=== PATIENT | male | born 1940 | race Caucasian/White ===

== ENCOUNTER 2016-08-27 22:28 | Emergency (ER) | payer OTHER ==
[~2016-08-27] VITALS: Ht 188 cm; Wt 108.0 kg
[2016-08-27 22:35] VITALS: Ht 188 cm; Wt 108.0 kg
[2016-08-27] MEDS ORDERED: CEFTRIAXONE 1 GM/50 ML (PMX) 50 ML IVPB ONE (23:00)
[2016-08-27] MEDS ORDERED: DILTIAZEM 25 MG INJ IV ONE (23:00)
[2016-08-27] MEDS ORDERED: SOD CHLORIDE 0.9% 500 ML IV ONE (23:00)
[2016-08-27] MEDS ORDERED: ASPIRIN 81 MG TAB PO ONE (23:00)
[2016-08-27] MEDS: IBUPROFEN 600 MG TAB PO ONE ×2 (23:11→23:17)
[2016-08-27 23:13] LABS: ADD SCAN DIFF NO
[2016-08-27] MEDS ORDERED: WARF5TAB72 PO (23:18)
[2016-08-27] MEDS ORDERED: LOSA100T47 PO (23:19)
[2016-08-27] MEDS ORDERED: METO-448 PO (23:19)
--- NOTE | 2016-08-27 23:19 | ERA ---
ER Documentation Chief Complaint Date/Time DATE: 08/27/16 TIME: 23:16 Chief Complaint WEAKNESS HPI 75-year-old man brought in by EMS from home after fall, he states he struck his occipital scalp when he fell and has been generally feeling weak for the last 2 days with increased cough. He also complains of palpitations. He had a diagnosis of pneumonia last month and was treated with IV antibiotics. He denies shortness of breath, no chest pain, no vomiting or diarrhea, no headache or blurry vision. Patient is a poor historian and HPI supplemented by speaking to EMS who transported him here without further complications. ROS All systems reviewed and are negative except as per history of present illness. Medications Home Meds Reported Medications Multivitamins* (Theragran*) 1 Tab Tab, 1 TAB PO DAILY, TAB 08/27/16 Cholecalciferol* (Vitamin D3*) 1,000 Unit Tablet, 2000 UNIT PO DAILY, TAB 08/27/16 Metformin* (Glucophage*) 850 Mg Tablet, 850 MG PO WITH MEALS, #90 TAB 08/27/16 Glipizide* (Glucotrol*) 10 Mg Tablet, 20 MG PO BID WITH MEALS, TAB 08/27/16 Atorvastatin Calcium (Atorvastatin Calcium) 10 Mg Tablet, 10 MG PO QHS, #30 TAB 08/27/16 Furosemide* (Furosemide*) 40 Mg Tablet, 40 MG PO DAILY, TAB 08/27/16 Losartan Potassium* (Cozaar*) 100 Mg Tablet, 100 MG PO DAILY, #30 TAB 08/27/16 Metoprolol Tartrate* (Lopressor*) 25 Mg Tab, 75 MG PO BID, #180 TAB 08/27/16 Warfarin Sodium* (Coumadin*) 5 Mg Tablet, 5 MG PO DAILY, TAB PATIENT TAKE 5MG DAILY EXCEPT ON THURSDAY PATIENT TAKES 1 AND 1/2 TABS. 08/27/16 Allergies Allergies: Coded Allergies: lisinopril (Unverified Allergy, Unknown, 08/27/16) PMhx/Soc Hypertension, dementia, possibly congestive heart failure, atrial fibrillation History of Surgery: No Anesthesia Reaction: No Hx Neurological Disorder: No Hx Respiratory Disorders: No Hx Cardiac Disorders: Yes (AFIB) Hx Psychiatric Problems: No Hx Miscellaneous Medical Probl: No Hx Alcohol Use: No Hx Substance Use: No Hx Tobacco Use: No Smoking Status: Unknown if ever smoked FmHx Family History: No diabetes Physical Exam Vitals Vital Signs Date Time Temp Pulse Resp B/P Pulse Ox O2 Delivery O2 Flow Rate FiO2 08/27/16 23:30 98.9 106 28 141/87 99 Room Air 08/27/16 23:04 Nasal Cannula 2 08/27/16 22:35 102.5 142 28 127/111 94 Physical Exam GENERAL: Well-developed, appears dehydrated, febrile HEENT: Dry mucous, pink conjunctiva, no cervical spine tenderness or step-off deformities, no goiter, no jaundice or icterus, extraocular movements intact without pain. No submandibular induration, and no pharyngeal erythema NEURO: Alert and oriented 2, able to answer simple questions and follow simple commands, cranial nerves II through XII intact bilaterally, pupils equal round reactive to light, no focal deficits or facial asymmetry CARDIAC: Tachycardic and irregular, no murmurs rubs or gallops LUNGS: Poor breath sounds bilaterally, bibasilar crackles, no wheezing or stridor ABDOMEN: Soft nontender, no guarding, no rigidity, no rebound, no psoas sign no obturator sign. Normoactive bowel sounds SKIN: Warm and dry to touch, no abrasions, contusions, or hematomas, no lacerations, no ecchymosis, no target lesions, and without ulcers EXTREMITIES: No clubbing cyanosis, 2+ pitting edema in the lower extremities bilaterally, calves are bilaterally symmetrical, no Homans sign, no popliteal cord sign. Distal pulses equal and bilateral PSYCH: Normal affect without agitation or irritability Result Diagram: 08/27/16224908/27/162249 Results 24 hrs Laboratory Tests Test 08/27/16 22:30 08/27/16 22:50 Urine Color LT. YELLOW Urine Clarity CLEAR Urine pH 5.0 Urine Specific [place] 1.020 Urine Ketones NEGATIVE Urine Nitrite NEGATIVE Urine Bilirubin NEGATIVE Urine Urobilinogen 0.2 E.U./dL Urine Leukocyte Esterase NEGATIVE Urine Microscopic RBC 2-5/HPF Urine Microscopic WBC 0-2/HPF Urine Amorphous Urates MODERATE Urine Mucus FEW Urine Hemoglobin 1+ Urine Glucose NEGATIVE% Urine Total Protein 2+ Lactic Acid Level 5.7mmol/L White Blood Count 12.110^3/ul Red Blood Count 3.4810^6/ul Hemoglobin 10.3g/dl Hematocrit 33.0% Mean Corpuscular Volume 94.8fl Mean Corpuscular Hemoglobin 29.6pg Mean Corpuscular Hemoglobin Concent 31.2g/dl Red Cell Distribution Width 13.8% Platelet Count 63843^3/UL Mean Platelet Volume 9.9fl Neutrophils % 77.4% Lymphocytes % 13.8% Monocytes % 7.9% Eosinophils % 0.2% Basophils % 0.2% Nucleated Red Blood Cells % 0.0/100WBC Neutrophils # 9.410^3/ul Lymphocytes # 1.710^3/ul Monocytes # 1.010^3/ul Eosinophils # 0.010^3/ul Basophils # 0.010^3/ul Nucleated Red Blood Cells # 0.010^3/ul Prothrombin Time 24.3Sec Prothrombin Time Ratio 1.9 INR International Normalized Ratio 2.16 Activated Partial Thromboplast Time 53.8Sec Sodium Level 139mmol/L Potassium Level 5.1mmol/L Chloride Level 105mmol/L Carbon Dioxide Level 21mmol/L Anion Gap 18 Blood Urea Nitrogen 24mg/dl Creatinine 1.08mg/dl Glucose Level 162mg/dl Calcium Level 9.6mg/dl Total Bilirubin 1.5mg/dl Direct Bilirubin 0.00mg/dl Indirect Bilirubin 1.5mg/dl Aspartate Amino Transf (AST/SGOT) 27IU/L Alanine Aminotransferase (ALT/SGPT) 37IU/L Alkaline Phosphatase 99IU/L Troponin I < 0.012ng/ml B-Type Natriuretic Peptide 8910PG/ML Total Protein 7.9g/dl Albumin 4.0g/dl Globulin 3.90g/dl Albumin/Globulin Ratio 1.02 Lipase 113U/L Current Medications Medications (Trade) Dose Ordered Sig/Anaya Route PRN Reason Start Time Stop Time Status Last Admin Dose Admin Sodium Chloride (NS) 500 ml @ 500 mls/hr Q1H ONCE IV 08/27/16 23:00 08/27/16 23:59 DC 08/27/16 23:18 Diltiazem HCl (Cardizem Iv) 20 mg ONCE ONCE IV 08/27/16 23:00 08/27/16 23:01 DC 08/27/16 23:11 Aspirin (Aspirin) 324 mg ONCE ONCE PO 08/27/16 23:00 08/27/16 23:01 DC 08/27/16 23:10 Ibuprofen 600 mg 600 mg ONCE ONCE PO 08/27/16 23:00 08/27/16 23:01 DC Ceftriaxone Sodium 50 ml @ 100 mls/hr ONCE ONCE IVPB 08/27/16 23:00 08/27/16 23:29 DC 08/27/16 23:10 Azithromycin 250 ml @ 250 mls/hr ONCE ONCE IVPB 08/28/16 00:00 08/28/16 00:59 08/28/16 00:36 Sodium Chloride 1,000 ml @ 1,000 mls/hr Q1H ONCE IV 08/28/16 00:00 08/28/16 00:59 08/28/16 00:36 Vancomycin HCl (Vancocin) 250 ml @ 125 mls/hr ONCE IVPB 08/28/16 00:00 08/28/16 01:59 Diltiazem HCl (Cardizem Iv) 20 mg ONCE ONCE IV 08/28/16 00:00 08/28/16 00:01 DC 08/28/16 00:04 Procedures/MDM IV line was established patient was placed on radiographer cardiac catheterization rhythm strip revealed a irregular tachycardia at about 150 bpm consistent with atrial fibrillation. Patient was febrile. Blood and urine cultures have been ordered results are pending I will follow-up. Patient was given 500 cc normal saline intravenously and will not be given the full 30 mL/kg dose of IV fluids as I have high concern for decompensated heart failure either secondary to or exacerbated by atrial fibrillation with rapid ventricular rate. EKG performed, read by me revealed an atrial fibrillation with rapid ventricular rate at 150 bpm, normal axis, narrow QRS complex, no concerning ST elevations or depressions noted. I administered diltiazem 20 mg IV 1 with a reduction in his pulse although he did remain tachycardic and with complaints of palpitations so he was given a second dose of diltiazem 20 mg IV for a total of 40 mg. His pulse and blood pressure did improve. One view chest x-ray performed, read by me reveals a left upper lobe infiltrate , no pneumothorax, no end of the diaphragm, atelectatic changes bilaterally. CBC was unremarkable, electrolytes revealed a BUN/creatinine of 24/1, liver function tests were normal, troponin was negative, lactic acid elevated at 5.7, BNP elevated at about 9000 Patient was given a dose of 1 L normal saline intravenous for a total of 1.5 L, although no further IV fluids will be administered in the ED. Critical Care: Time: 38 minutes, this was time separate from other procedures. Treatments/Evaluations: Close monitoring and treatment of unstable vital signs, cardiorespiratory, and neurologic status, while maintaining tight balance of fluid, respiratory, and cardiac interventions. Patient's infectious symptoms have not stabilized and the patient is at risk of rapid decompensation. The patient will be admitted for careful hydration, antibiotic therapy, and infectious source control. Severe Sepsis Assessment: Infectious Source: Pneumonia Nothing on physical examination or laboratory findings to suggest endorgan damage at this time. Severe Sepsis Managment: Blood Cultures X 2 before broad spectrum antibiotics initiated within 3 hours of recognition. 30 ml/kg NS bolus Completed Initial Lactate: 5.7 Repeat Lactate elevated Septic Shock Assessment: Hypotension (SBP < 90 or 40 mmHg drop, MAP < 65): No Lactic acid > 4.0 yes Perfusion Reassessment for Septic Shock: Temp afebrile, Pulse 100, RR 20, BP 130/80 Heart Exam: Tachycardic Lung Exam: Bibasilar carotid Capillary Refill: Less than 2 second Peripheral Pulses: Radially present Skin: Warm and dry Hypotensive Treatment (not required for isolated lactic acid elevation): Comfort Care: No Central LIne: Not indicated Vasopressor started: Not required Accepting Care Team: Current data and ongoing care discussed. Time: 00:30 on the morning of August 28. Patient to be transferred to [facility]. Primary Provider: [facility]. [facility] authorization #[id number] Consulting: Infectious disease and cardiology Outstanding Data: none Departure Diagnosis: Primary Impression: Atrial fibrillation with RVR Additional Impressions: Sepsis Qualified Code: A41.9 - Sepsis, due to unspecified organism Pneumonia Qualified Code: J18.1 - Pneumonia of left upper lobe due to infectious organism CHF (congestive heart failure) Qualified Code: I50.21 - Acute systolic congestive heart failure Dehydration Condition: RONAK Benavidez MD August 27, 2016 23:19
[2016-08-27 23:20] LABS: BASOPHILS % 0.2 % (0.0-2.0); EOSINOPHILS % 0.2 % (0.0-7.0); HEMOGLOBIN 10.3 g/dl (14.0-18.0); LYMPHOCYTES # 1.7 10^3/ul (0.8-2.9); LYMPHOCYTES % 13.8 % (15.0-51.0); MEAN CORPUSCULAR HEMOGLOBIN 29.6 pg (29.0-33.0); MEAN CORPUSCULAR HGB CONC 31.2 g/dl (32.0-37.0); MEAN CORPUSCULAR VOLUME 94.8 fl (82.0-101.0); MEAN PLATELET VOLUME 9.9 fl (7.4-10.4); MONOCYTES % 7.9 % (0.0-11.0); NEUTROPHIL # 9.4 10^3/ul (1.6-7.5); NEUTROPHILS % 77.4 % (39.0-77.0); PLATELET COUNT 276 10^3/UL (140-415); RED BLOOD COUNT 3.48 10^6/ul (4.70-6.10); RED CELL DISTRIBUTION WIDTH 13.8 % (11.5-14.5); WHITE BLOOD COUNT 12.1 10^3/ul (4.8-10.8)
[2016-08-27] MEDS ORDERED: FURO40TA4 PO (23:20)
[2016-08-27] MEDS ORDERED: ATOR10TA65 PO (23:20)
[2016-08-27] MEDS ORDERED: GLIP10TA95 PO (23:21)
[2016-08-27] MEDS ORDERED: METF-480 PO (23:22)
[2016-08-27] MEDS ORDERED: CHOL100062 PO (23:22)
[2016-08-27] MEDS ORDERED: MULTI PO (23:23)
[2016-08-27 23:27] LABS: ADD UMIC YES; URINE BILIRUBIN (Dip) NEGATIVE (NEGATIVE); URINE BLOOD (Dip) 1+ (NEGATIVE); URINE COLOR LT. YELLOW (YELLOW); URINE GLUCOSE (Dip) NEGATIVE (NEGATIVE); URINE KETONES (Dip) NEGATIVE (NEGATIVE); URINE LEUKOCYTE ESTERASE (Dip) NEGATIVE (NEGATIVE); URINE NITRITE (Dip) NEGATIVE (NEGATIVE); URINE TOTAL PROTEIN (Dip) 2+ (NEGATIVE); URINE UROBILINOGEN (Dip) 0.2 E.U./dL (0.1-1.0)
[2016-08-27 23:37] LABS: INR 2.16; PROTIME 24.3 Sec (12.2-14.2); PT RATIO 1.9
[2016-08-27 23:38] LABS: PARTIAL THROMBOPLASTIN TIME 53.8 Sec (25.0-35.0)
[2016-08-27 23:40] LABS: ALANINE AMINOTRANSFERASE 37 IU/L (13-69); ALBUMIN/GLOBULIN RATIO 1.02; ALKALINE PHOSPHATASE 99 IU/L (42-121); ANION GAP 18 (8-16); ASPARTATE AMINO TRANSFERASE 27 IU/L (15-46); BILIRUBIN,INDIRECT 1.5 mg/dl (0-1.1); BILIRUBIN,TOTAL 1.5 mg/dl (0.2-1.3); BLOOD UREA NITROGEN 24 mg/dl (7-20); CALCIUM 9.6 mg/dl (8.4-10.2); CARBON DIOXIDE 21 mmol/L (21-31); CHLORIDE 105 mmol/L (97-110); CREATININE 1.08 mg/dl (0.61-1.24); GLUCOSE 162 mg/dl (70-220); POTASSIUM 5.1 mmol/L (3.5-5.1); SODIUM 139 mmol/L (135-144); TOTAL PROTEIN 7.9 g/dl (6.1-8.1)
[2016-08-27 23:51] LABS: B-TYPE NATRIURETIC PEPTIDE 8910 PG/ML (0-450)
[2016-08-27 23:56] LABS: TROPONIN-I < 0.012 ng/ml (0.00-0.12)
[2016-08-27 23:58] LABS: MUCUS,URINE FEW
[2016-08-28] MEDS ORDERED: SOD CHLORIDE 0.9% 1,000 ML IV ONE
[2016-08-28] MEDS ORDERED: DILTIAZEM 25 MG INJ IV ONE
[2016-08-28] MEDS ORDERED: VANCOMYCIN 1 GM (PMX) 250 ML IVPB SCH
[2016-08-28] MEDS ORDERED: AZITHROMYCIN 500MG/NS (PMX) 250 ML IVPB ONE
--- NOTE | 2016-08-28 00:57 | RADRPT ---
PROCEDURE: Noncontrast CT Head. CLINICAL INDICATION: Pain. TECHNIQUE: Noncontrast CT of the head was obtained. The administered radiation dose was CTDI vol = 44 mGy, DLP = 900 mGy-cm. COMPARISON: No pertinent prior examinations were submitted for comparison. FINDINGS: The ventricles and cortical sulci are mildly enlarged. There is mild decreased attenuation within t he periventricular and subcortical white matter compatible with chronic microvascular changes. There is no acute intracranial hemorrhage or extra-axial fluid collection. There is no mass effect . No midline shift is identified. There is no loss of choi-white differentiation to suggest acute in farction. The orbits are within normal limits. The paranasal sinuses are well aerated. No destructive osseous lesion is identified. IMPRESSION: No acute findings. Mild diffuse parenchymal volume loss and chronic microvascular changes. RPTAT: HIKT .Dwayne Hernández MD, MD Date Time Electronically viewed and signed by .Dwayne Hernández MD, on 08/28/2016 00:56 .T/
[2016-08-28 02:02] VITALS: BP 115/69; PULSE 100; RESP 28; TEMP 98.9
--- NOTE | 2016-08-28 12:01 | RADRPT ---
PROCEDURE: XR Chest. CLINICAL INDICATION: Abdomen pain. TECHNIQUE: Single frontal view. COMPARISON: None. FINDINGS: There is mild atelectasis at the lung bases. Superimposed pneumonia at the left lung base cannot be excluded. The lungs are otherwise clear. The heart size is normal. There is calcification in the aorta consistent with atherosclerosis. There is no pleural effusion. There is no pneumothorax. IMPRESSION: 1. Mild atelectasis at the lung bases with possible left basilar pneumonia. 2. Atherosclerosis. RPTAT: QQ .Faheem Yusuf MD, MD Date Time Electronically viewed and signed by .Faheem Yusuf MD, on 08/28/2016 12:01 .R/
== END 2016-08-28 02:02 | disposition short-term general hospital (02) ==
LOC: E/R 22:28
DX: I48.91 Unspecified atrial fibrillation (principal); A41.9 Sepsis, unspecified organism; J18.1 Lobar pneumonia, unspecified organism; I50.21 Acute systolic (congestive) heart failure; E86.0 Dehydration; R93.0 Abnormal findings on diagnostic imaging of skull and head, not elsewhere classified
CPT/HCPCS: 36415; 70450; 71010; 80053; 81001; 83605; 83690; 83880; 84484; 85025; 85610; 85730; 87040; 87086; 96374; 96375; 99291; J0456; J0696; J7030; J7040; P9612; 81003; J3370